=== PATIENT | male | born 1980 | race African-American/Black ===

== ENCOUNTER 2023-10-15 09:24 | Emergency (ER) | payer MEDICAID, SELFPAY ==
[2023-10-15 09:37] VITALS: BP 137/94; PULSE 137; RESP 20; TEMP 39.2; O2SAT 95
[2023-10-15 10:13] LABS: Strep Group A RT-PCR NOT DETECTED (Negative)
[2023-10-15 10:25] LABS: Influenza A QL RT-PCR Positive (Negative); Influenza B QL RT-PCR Negative (Negative); RSV RNA, RT-PCR Negative (Negative); SARS-CoV-2 RNA PCR Negative (Negative)
--- NOTE | 2023-10-15 10:41 | ED.GENADULT ---
HPI - General Adult General Chief complaint: Upper Respiratory Infection Stated complaint: coming down with the flu Time Seen by Provider: 10/15/23 09:37 History of Present Illness HPI narrative: 43-year-old male presenting to the emergency department for evaluation for cough congestion body aches and fatigue over the last 24 hours. Patient states he began developing symptoms yesterday. Patient denies any sick contacts. Related Data Allergies Allergy/AdvReac Type Severity Reaction Status Date / Time Penicillins Allergy Unknown Verified 10/15/23 09:42 Review of Systems Review of Systems: All systems reviewed & are unremarkable except as noted in HPI and below Exam Narrative: APPEARANCE: Well appearing, no pain, no distress, well-nourished. HEAD: normocephalic, atraumatic. EYES: PERRLA/EOMI, conjunctivae clear. NOSE: Normal no drainage EARS:TMS clear with good light reflex. THROAT: Pharynx clear, no exudate. NECK: Supple. No adenopathy, no masses. RESPIRATORY: Airway patent, respirations nonlabored. Clear to auscultation bilaterally, no rales, rhonchi, wheezing. CARDIOVASCULAR: Regular rate and rhythm without murmurs rubs or gallops. ABDOMINAL: Soft, nontender, nondistended, normal bowel sounds MUSCULOSKELETAL: Moves all extremities. Strength/ROM intact, No edema, No calf tenderness. NEURO: Alert. Cranial nerves II through XII intact. Grossly intact SKIN: Warm, dry. Normal Color Course Course Emergency Course: patient was diagnosed with influenza and discharged to home. Vital Signs Vital signs: Vital Signs Temperature 102.5 F H 10/15/23 09:37 Pulse Rate 137 H 10/15/23 09:37 Respiratory Rate 20 10/15/23 09:37 Blood Pressure 137/94 H 10/15/23 09:37 Pulse Oximetry 95 10/15/23 09:37 Oxygen Delivery Room Air 10/15/23 09:37 Temperature 102.2 F H 10/15/23 11:32 Pulse Rate 137 H 10/15/23 09:37 Respiratory Rate 20 10/15/23 09:37 Blood Pressure 137/94 H 10/15/23 09:37 Pulse Oximetry 100 10/15/23 11:30 Oxygen Delivery Room Air 10/15/23 11:30 Medical Decision Making [facility] Narrative Medical decision making narrative: 43-year-old male presenting to the emergency department for evaluation for cough congestion body aches and fatigue. Patient was negative for COVID but patient was positive for influenza A. Patient was provided Tessalon Perles for cough suppression, Peter on healer. Patient was advised to take Tylenol and ibuprofen for pain control. All questions concerns were addressed and patient was well-appearing at time of discharge. Differential Diagnosis Differential Diagnosis: Influenza, RSV, COVID, pneumonia Vital Signs Vital Signs: Vital Signs Temperature 102.5 F H 10/15/23 09:37 Pulse Rate 137 H 10/15/23 09:37 Respiratory Rate 20 10/15/23 09:37 Blood Pressure 137/94 H 10/15/23 09:37 Pulse Oximetry 95 10/15/23 09:37 Oxygen Delivery Room Air 10/15/23 09:37 Temperature 102.2 F H 10/15/23 11:32 Pulse Rate 137 H 10/15/23 09:37 Respiratory Rate 20 10/15/23 09:37 Blood Pressure 137/94 H 10/15/23 09:37 Pulse Oximetry 100 10/15/23 11:30 Oxygen Delivery Room Air 10/15/23 11:30 Lab Data Labs: Lab Results 10/15/23 Range/Units 09:43 Influenza A (RT-PCR) Positive A (Negative) Influenza B (RT-PCR) Negative (Negative) RSV (RT-PCR) Negative (Negative) SARS-CoV-2 RNA (RT-PCR) Negative (Negative) Group A Strep (PCR) Not detected (Negative) Discharge Plan Discharge Clinical Impression: Influenza A Patient Disposition: Home, Self-Care Condition: Stable Instructions: Antibiotic Form, Influenza (ED) Additional Instructions: Tylenol and ibuprofen for pain control. albuterol inhaler for shortness of breath. Tessalon Perles for cough and congestion. Zofran as needed for nausea control. Have close follow-up with your primary care physician. If you have any worsening symptoms then
[2023-10-15] MEDS: IBUPROFEN 600 MG TABLET PO (11:28)
[2023-10-15] MEDS: BENZONATATE 100 MG CAPSULE 200 MG PO (11:29)
[2023-10-15] MEDS: ACETAMINOPHEN 500 MG TABLET 1000 MG PO (11:29)
[2023-10-15 11:30] VITALS: O2SAT 100
[2023-10-15 11:32] VITALS: TEMP 39
== END 2023-10-15 11:33 | disposition home or self-care (01) ==
PROVIDERS: Emergency Provider Emergency Medicine
DX: J10.1 Influenza due to other identified influenza virus with other respiratory manifestations (principal); Z20.822 Contact with and (suspected) exposure to COVID-19
CPT/HCPCS: 87637; 87651; 99283; A9270